=== PATIENT | female | born 1930 | race Caucasian/White ===

== ENCOUNTER 2019-12-02 20:33 | Inpatient (IN) ==
[2019-12-02 21:38] LABS: Basophils % 0.4 %; Eosinophils # 0.1 K/mcL (0.0-0.6); Eosinophils % 1.9 %; Hematocrit 42.6 % (35.3-44.9); Hemoglobin 14.2 g/dL (11.5-15.4); Immature Granulocytes % 0.2 % (0-4); Lymphocytes # 1.2 K/mcL (0.6-4.6); Lymphocytes % 22.6 %; Mean Corpuscular HGB Conc 33.3 g/dL (31.6-35.5); Mean Corpuscular Hemoglobin 30.4 pg (28.0-33.3); Mean Corpuscular Volume 91.2 fL (83.0-100.0); Mean Platelet Volume 10.8 fL (9.4-12.4); Monocytes # 0.4 K/mcL (0.0-1.3); Monocytes % 8.3 %; Neutrophils # 3.5 K/mcL (1.6-8.9); Platelet Count 148 K/mcL (140-400); Red Blood Count 4.67 M/mcL (3.82-4.97); Segmented Neutrophils % 66.6 %; White Blood Count 5.2 K/mcL (4.3-11.1)
[2019-12-02 21:49] LABS: Troponin I 0.03 ng/mL (< 0.04)
[2019-12-02 21:50] LABS: Acetaminophen < 10 mcg/mL (10-20); Salicylate < 2.5 mg/dL (15.0-30.0)
[2019-12-02 21:51] LABS: Albumin 4.6 g/dL (3.5-5.7); Albumin/Globulin Ratio 2.1 (1.1-2.2); Bilirubin,Total 0.8 mg/dL (0.3-1.0); Calcium 9.9 mg/dL (8.6-10.3); Globulin 2.2 g/dL (2.4-3.5); Magnesium 2.2 mg/dL (1.6-2.6); Potassium 3.8 mEq/L (3.5-5.1); Total Protein 6.8 g/dL (6.4-8.9)
[2019-12-02 21:59] LABS: Bilirubin,Urine Negative (Negative); Blood,Urine Trace-intact (Negative); Clarity,Urine Slightly Cloudy (Clear); Glucose,Urine (UA) Normal (Normal); Ketones,Urine Negative (Negative); Leukocyte Esterase,Urine Trace (Negative); Nitrite,Urine Negative (Negative); PH,Urine 7.5 pH Units (5.0-8.0); Protein,Urine 30 mg/dL (Neg-Trace); Urobilinogen,Urine Normal (Normal)
[2019-12-02 22:00] LABS: Color,Urine Yellow (Yellow)
[2019-12-02 22:02] LABS: Bacteria,Urine Few per hpf (None-Few); RBC,Urine 0-3 per hpf (0-3); Squamous Epithelial Cell,Urine Few per lpf (None-Few)
[2019-12-02 22:03] LABS: Thyroid Stimulating Hormone 2.614 mcIU/mL (0.340-5.600)
[2019-12-02 22:08] LABS: Amphetamine Screen,Urine Negative ng/mL (Cutoff=1000); Barbiturate Screen,Urine Negative ng/mL (Cutoff=200); Benzodiazepines Screen,Urine Negative ng/mL (Cutoff=200); Cannabinoid Screen,Urine Negative ng/mL (Cutoff = 50); Cocaine Screen,Urine Negative ng/mL (Cutoff= 300); Opiate Screen,Urine Negative ng/mL (Cutoff=300); Phencyclidine Screen,Urine Negative ng/mL (Cutoff=25)
[2019-12-02] MEDS ORDERED: levoFLOXacin 500 MG TABLET PO ONE (22:20)
[2019-12-02] MEDS ORDERED: Mag Hydrox/Al Hydrox/Simeth 30 ML UDC PO PRN (22:56)
[2019-12-02] MEDS ORDERED: Naloxone 0.4 MG/ML INJ IVP PRN (22:56)
[2019-12-02] MEDS ORDERED: Ondansetron 4 MG/2 ML VIAL IVP PRN (22:56)
[2019-12-03] MEDS: Furosemide 40 MG TABLET PO SCH (07:39)
[2019-12-03] MEDS: Apixaban 5 MG TABLET PO SCH ×2 (07:39→20:01)
[2019-12-03] MEDS: levoFLOXacin 500 MG TABLET PO SCH (07:39)
[2019-12-03] MEDS: lisinopriL 10 MG TABLET PO SCH (13:12)
[2019-12-03] MEDS ORDERED: haloperidoL 1 MG TABLET PO PRN (15:13)
[2019-12-03] MEDS: Haloperidol Lactate 5 MG/ML VIAL IVP ONE ×2 (15:51→17:11)
[2019-12-03] MEDS ORDERED: hydrALAZINE 10 MG TABLET PO PRN (19:24)
[2019-12-04 05:48] LABS: Hematocrit 40.2 % (35.3-44.9); Hemoglobin 13.5 g/dL (11.5-15.4); Mean Corpuscular HGB Conc 33.6 g/dL (31.6-35.5); Mean Corpuscular Hemoglobin 30.6 pg (28.0-33.3); Mean Corpuscular Volume 91.2 fL (83.0-100.0); Platelet Count 135 K/mcL (140-400); Red Blood Count 4.41 M/mcL (3.82-4.97); Red Cell Distribution Width 13.8 % (11.5-14.5); White Blood Count 4.7 K/mcL (4.3-11.1)
[2019-12-04 06:02] LABS: Albumin 4.1 g/dL (3.5-5.7); Albumin/Globulin Ratio 2.2 (1.1-2.2); Bilirubin,Total 0.9 mg/dL (0.3-1.0); Calcium 9.4 mg/dL (8.6-10.3); Globulin 1.9 g/dL (2.4-3.5); Magnesium 2.1 mg/dL (1.6-2.6); Potassium 3.8 mEq/L (3.5-5.1); Uric Acid 6.5 mg/dL (2.3-7.6)
[2019-12-04] MEDS ORDERED: lisinopriL 10 MG TABLET PO SCH (09:00)
[2019-12-04] MEDS: lisinopriL 10 MG TABLET PO SCH (09:36)
[2019-12-04] MEDS: Apixaban 5 MG TABLET PO SCH ×2 (09:37→20:01)
[2019-12-04] MEDS: Furosemide 40 MG TABLET PO SCH (09:37)
[2019-12-04] MEDS: levoFLOXacin 500 MG TABLET PO SCH (09:37)
[2019-12-04 19:15] LABS: Calcium 9.8 mg/dL (8.6-10.3)
[2019-12-05] MEDS: lisinopriL 10 MG TABLET PO SCH (08:51)
[2019-12-05] MEDS: Furosemide 40 MG TABLET PO SCH (08:51)
[2019-12-05] MEDS: Apixaban 5 MG TABLET PO SCH ×2 (08:52→20:02)
[2019-12-05] MEDS: levoFLOXacin 500 MG TABLET PO SCH (08:54)
[2019-12-05] MEDS: 0.9 % Sodium Chloride 1,000 ML IVC SCH (17:30)
[2019-12-06] MEDS: 0.9 % Sodium Chloride 1,000 ML IVC SCH (08:07)
[2019-12-06] MEDS: levoFLOXacin 500 MG TABLET PO SCH (09:24)
[2019-12-06] MEDS: Apixaban 5 MG TABLET PO SCH (09:25)
[2019-12-06] MEDS: lisinopriL 10 MG TABLET PO SCH (09:25)
[2019-12-06 10:39] LABS: Hematocrit 41.5 % (35.3-44.9); Hemoglobin 13.7 g/dL (11.5-15.4); Mean Corpuscular Hemoglobin 30.6 pg (28.0-33.3); Mean Corpuscular Volume 92.8 fL (83.0-100.0); Mean Platelet Volume 10.7 fL (9.4-12.4); Platelet Count 139 K/mcL (140-400); Red Blood Count 4.47 M/mcL (3.82-4.97); Red Cell Distribution Width 14.1 % (11.5-14.5); White Blood Count 5.3 K/mcL (4.3-11.1)
[2019-12-06 10:50] LABS: BUN/Creatinine Ratio 22 (6-26); Blood Urea Nitrogen 22 mg/dL (8-23); Calcium 8.9 mg/dL (8.6-10.3); Carbon Dioxide 24 mEq/L (23-29); Chloride 108 mEq/L (98-107); Glucose 94 mg/dL (70-105); Magnesium 1.9 mg/dL (1.6-2.6); Osmolality,Calculated 295 (280-300); Potassium 3.6 mEq/L (3.5-5.1); Sodium 141 mEq/L (136-145); eGFR For African Americans > 60 (> 60); eGFR For Non-African Americans 52 (> 60)
[2019-12-06 11:39] VITALS: BP 132/65
== END 2019-12-06 13:05 | DRG 194 ==
LOC: EMEROOGRE 20:33 → INPGRE 20:33
PROVIDERS: ADMIT Family Medicine; ATTEND Family Medicine